=== PATIENT | female | born 1995 | race Two or more races ===

== ENCOUNTER 2023-07-16 00:40 | Emergency (ER) | payer SELFPAY ==
[~2023-07-16] VITALS: Ht 157.5 cm; Wt 56.9 kg
[2023-07-16 05:50] VITALS: BP 114/76; PULSE 66; RESP 15; TEMP 98.9; O2SAT 96
== END 2023-07-16 05:05 | disposition home or self-care (01) ==
LOC: ER 00:40
DX: T78.40XA Allergy, unspecified, initial encounter (principal); X58.XXXA Exposure to other specified factors, initial encounter